=== PATIENT | male | born 1945 | race Caucasian/White ===

== ENCOUNTER 2016-11-04 12:32 | Day surgery (SDC) | payer MEDICARE, MEDICAID ==
[~2016-11-04] VITALS: Ht 172.7 cm; Wt 83.9 kg
[~2016-11-04 12:32] MED LIST: ALBU17IN INH; AMLO5TAB2 PO; ARIP1TAB2 PO; ARIP1TAB6 PO; ATEN100T PO; BACTRIM IV 160MG-800MG/10ML VIAL (S0039) XX ONE; BUPR200T PO; BUSP15TA47 PO; DONETAB6 PO; ENAL20TA PO; IBUP1TAB7 PO; IBUP200C10 PO; INSUH10VL SC; SYNT25TA PO; TIZA2CAP3 PO; nph insulin SC
[2016-11-04] MEDS ORDERED: GENTAMICIN 100 MG in APPROPRIATE DILUENT 1 EA IV ONE (13:00)
[2016-11-04] MEDS ORDERED: VANCOMYCIN HCL 1,000 MG, VIAL MATE ADAPTER 1 EACH in D5W 250 ML IV ONE (13:00)
[2016-11-04] MEDS ORDERED: LR 1,000 ML IV ONE (13:00)
[2016-11-04] MEDS ORDERED: LIDOCAINE 2% INJ 100 MG/5 ML SDV (FOR ANES.) As Ordered ONE (14:35)
[2016-11-04] MEDS ORDERED: fentaNYL 250 MCG/5 ML INJECTION (J3010) As Ordered ONE (14:35)
[2016-11-04] MEDS ORDERED: PROPOFOL 200 MG/20 ML VIAL As Ordered ONE (14:35)
[2016-11-04] MEDS ORDERED: MIDAZOLAM INJ 2 MG/2 ML VIAL (J2250) As Ordered ONE (14:35)
[2016-11-04] MEDS ORDERED: dexameTHASONE 4 MG/ML 1ML VIAL (J1100) As Ordered ONE (14:35)
[2016-11-04] MEDS ORDERED: BACITRACIN OINT 30GM As Ordered ONE (15:19)
[2016-11-04] MEDS ORDERED: ePHEDrine SULFATE 25 MG/5 ML(5MG/ML) SYRINGE As Ordered ONE ×2 (15:53→16:47)
[2016-11-04] MEDS ORDERED: ROCURONIUM BROMIDE 50 MG/5 ML VIAL/SYRINGE As Ordered ONE (15:54)
[2016-11-04] MEDS ORDERED: KETOROLAC 60 MG/2 ML VIAL (J1885) As Ordered ONE (16:38)
[2016-11-04] MEDS ORDERED: SUCCINYLCHOLINE 100 MG/5 ML SYRINGE (J0330) As Ordered ONE (16:38)
[2016-11-04] MEDS ORDERED: METOCLOPRAMIDE INJ 10MG/2ML VIAL (J2765) As Ordered ONE (16:40)
[2016-11-04] MEDS ORDERED: GLYCOPYRROLATE INJ 0.2 MG/ML 2 ML VIAL As Ordered ONE (16:52)
[2016-11-04] MEDS ORDERED: TYLE650T35 PO (17:28)
[2016-11-04] MEDS ORDERED: BACT800T5 PO (17:28)
[2016-11-04] MEDS ORDERED: HYDROmorphone HCL 1 MG/ML SYRINGE (J1170) IV PRN (17:45)
[2016-11-04] MEDS ORDERED: LR 1,000 ML IV SCH (17:45)
[2016-11-04] MEDS ORDERED: PERCOCET 5MG/325MG TAB PO PRN (17:45)
[2016-11-04] MEDS ORDERED: fentaNYL 100 MCG/2 ML INJECTION (J3010) IV PRN (17:45)
[2016-11-04] MEDS ORDERED: ONDANSETRON 4MG/2ML VIAL (J2405) IV PRN (17:45)
[2016-11-04] MEDS ORDERED: ONDANSETRON 4MG/2ML VIAL (J2405) As Ordered ONE (18:36)
[2016-11-04 19:00] VITALS: BP 162/70
[2016-11-04] MEDS ORDERED: BACTRIM 160MG/800MG DS TAB PO SCH (21:00)
[2016-11-04] MEDS ORDERED: ACETAMINOPHEN 650MG ER TAB (TYLENOL ARTHRITIS) PO SCH (22:00)
--- NOTE | 2016-11-05 22:35 | RO ---
DATE OF PROCEDURE: 11/04/2016 PREOPERATIVE DIAGNOSIS: Erectile dysfunction. POSTOPERATIVE DIAGNOSIS: Erectile dysfunction. SURGERY PERFORMED: Inflatable penile prosthesis placement Coloplast Titan 18 cm in length, plus 2 cm rear tips bilaterally. 75 mL of Meggett reservoir. SURGEON: Venkata Lund MD PURCHASING INTERNSHIP: None. ANESTHESIA: General. COMPLICATIONS: None. ESTIMATED BLOOD LOSS: n/a HISTORY OF PRESENT ILLNESS: 71-year-old male patient that has erectile dysfunction. Has a history of diabetes mellitus. For this reason he has consented for an inflatable penile prosthesis placement, Coloplast Titan. PROCEDURE DESCRIPTION: With the patient under general anesthesia in supine position after prepping and draping the area of concern, which included the entire genitalia and abdomen, we started by introducing a #15-Urdu Tee catheter, inflated the balloon to 10 mL. We then proceeded to actually do an incision in the penile scrotal area for about 5 cm in length in the midline. Through this incision with electro Bovie cautery we opened both corpora cavernosa for about 2 cm longitudinally in the mid area of the corpora lateral to the urethra. We placed #2-0 Vicryl stitches on each side of the incision of the corpora and then dilated the corpora proximally up to 13 and distally up to 9. We then proceeded to measure the corpora and the corporal total length was 20 cm bilaterally. For this reason we decided to place an inflatable penile prosthesis Titan of 18 cm in length and added 2 cm of rear tip bilaterally. With Furlough assistance we actually placed the inflatable penile prosthesis bilaterally and then inflated it up and down, deflating it completely and was in good position. The tips distally were symmetrical. For this reason we started to close the corpora cavernotomies with #2-0 Vicryl times four. We then proceeded to actually do our space for the reservoir through the external inguinal ring. We did a single dissection and opened the posterior floor of the inguinal canal to actually access the Retzius space. At that moment in time, we placed the Meggett reservoir and inflated the Meggett reservoir to 75 mL. We then deflated again. Since we left around 25 mL on the penile prosthesis, we actually inflated the reservoir to 50 mL and then rubber shunt the tubing. We then proceeded to do our pouch in the middle of the scrotum between the two testicles to place the prosthesis pump. We then connected the tubing with the connectors and then closed the incision with two layers of Vicryl #2-0 and closed the skin with #4-0 Monocryl in a running fashion. Then we cut the distal stitches, attached to the penile prosthesis and then did a mummy wrap by applying Bacitracin cream on top of the incision and wrapped the penis and genitalia with a Kerlix roll. There were no complications. The patient will go home today with Bactrim double strength, 1 tablet by mouth twice a day for three weeks and Tylenol for pain. MTDD
== END 2016-11-04 19:35 | disposition home or self-care (01) ==
LOC: M SDC 12:32
PROVIDERS: ATTEND Urology
DX: N52.9 Male erectile dysfunction, unspecified (principal); E03.9 Hypothyroidism, unspecified; I10 Essential (primary) hypertension; J45.909 Unspecified asthma, uncomplicated; E10.9 Type 1 diabetes mellitus without complications; E53.8 Deficiency of other specified B group vitamins; L40.9 Psoriasis, unspecified; R41.3 Other amnesia; I35.8 Other nonrheumatic aortic valve disorders; K21.9 Gastro-esophageal reflux disease without esophagitis; R06.02 Shortness of breath; F32.9 Major depressive disorder, single episode, unspecified; Z79.899 Other long term (current) drug therapy; Z79.4 Long term (current) use of insulin
CPT/HCPCS: 36415; 54405; 81001; 86850; 86900; 86901; 87086; C1813; J0330; J1580; J1885; J2250; J2405; J2765; J3010; J3370

== ENCOUNTER 2022-01-17 13:11 | Emergency (ER) | payer MEDICARE, MEDICAID ==
[~2022-01-17] VITALS: Ht 172.7 cm; Wt 95.5 kg
[~2022-01-17 13:11] MED LIST changes: +ACET650T61 PO; +AMLO1TAB24 PO; -AMLO5TAB2 PO; -ARIP1TAB2 PO; +ARIP1TAB43 PO; +BACT800T5 PO; -BACTRIM IV 160MG-800MG/10ML VIAL (S0039) XX ONE; -BUPR200T PO; +BUPR200T41 PO; +DONE-1 PO; -DONETAB6 PO; -ENAL20TA PO; +ENAL20TA11 PO; -IBUP200C10 PO; +IBUP200C25 PO; +TIZA2CAP PO; -TIZA2CAP3 PO
[2022-01-17 13:27] VITALS: BP 187/89
== END 2022-01-17 13:58 | disposition left against medical advice (07) ==
LOC: M ED 13:11
DX: E11.649 Type 2 diabetes mellitus with hypoglycemia without coma (principal); I10 Essential (primary) hypertension; E78.5 Hyperlipidemia, unspecified; N52.9 Male erectile dysfunction, unspecified; Z96.89 Presence of other specified functional implants; Z79.51 Long term (current) use of inhaled steroids; Z79.899 Other long term (current) drug therapy; Z79.4 Long term (current) use of insulin